=== PATIENT | male | born 1995 | race Caucasian/White ===

== ENCOUNTER 2020-06-09 12:42 | Emergency (ER) | payer BC, SELFPAY ==
--- NOTE | ~2020-06-09 | CT_ITS ---
EXAMINATION: CT facial & cervical spine wo DATE: 06/09/2020 13:22 INDICATION: Head injury. Headache. TECHNIQUE: Computed tomography (CT) of the maxillofacial region and cervical spine was performed with out intravenous contrast. Automated exposure control and iterative reconstruction technique were empl oyed. The dose-length product was 393.40 mGy-cm. COMPARISON: None FINDINGS: MAXILLOFACIAL CT: There is rightward deviation of the nasal septum. There are nondisplaced fractures of the nasal bones . There is mucosal thickening in the paranasal sinuses including complete opacification of right maxi llary sinus, which is small. The mastoid air cells are normal. CERVICAL SPINE CT: There is 4 degrees levocurvature of cervical spine. Vertebral body heights are normal. Intervertebral disc heights are normal. The following disc levels are specifically discussed: C2-C3: There is no uncovertebral joint osteoarthritis. There is mild bilateral facet joint osteoarthr itis. There is no neural foraminal stenosis. There is no central canal stenosis. C3-C4: There is mild right uncovertebral joint osteoarthritis. There is mild right facet joint osteoa rthritis. There is mild right neural foraminal stenosis. There is no central canal stenosis. C4-C5: There is mild bilateral uncovertebral joint osteoarthritis. There is no facet joint osteoarthr itis. There is no neural foraminal stenosis. There is mild central canal stenosis. C5-C6: There is mild right and moderate left uncovertebral joint osteoarthritis. There is mild right facet joint osteoarthritis. There is mild bilateral neural foraminal stenosis. There is mild central canal stenosis. C6-C7: There is mild right uncovertebral joint osteoarthritis. There is no facet joint osteoarthritis . There is no neural foraminal stenosis. There is no central canal stenosis. C7-T1: There is no uncovertebral joint osteoarthritis. There is mild bilateral facet joint osteoarthr itis. There is no neural foraminal stenosis. There is no central canal stenosis. IMPRESSION: 1. Nondisplaced fractures of the nasal bones. 2. Mild cervical spondylosis. Reviewed, dictated and finalized at location B. [employer]
--- NOTE | ~2020-06-09 | CT_ITS ---
EXAMINATION: CT brain wo con DATE: 06/09/2020 13:22 INDICATION: Headache. TECHNIQUE: Computed tomography (CT) of the head was performed without intravenous contrast. The mA wa s adjusted according to patient size. Iterative reconstruction technique was employed. The dose-lengt h product was 605.33 mGy-cm. COMPARISON: None FINDINGS: There is no intracranial hemorrhage, acute infarction, or abnormal intracranial mass lesion . Cavum septum pellucidum is noted. The ventricles are normal in size. The orbits are normal. There i s mucosal thickening in the paranasal sinuses. The mastoid air cells are normal. IMPRESSION: 1. Normal brain. Reviewed, dictated and finalized at location B. D REPRESENTATIVE IMPRESSION: 1. Normal brain.
[2020-06-09 12:46] VITALS: BP 140/82; PULSE 116; RESP 14; TEMP 36.6; O2SAT 99
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
== END 2020-06-09 14:25 | disposition home or self-care (01) ==
PROVIDERS: Emergency Provider Emergency Medicine
DX: S02.2XXA Fracture of nasal bones, initial encounter for closed fracture (principal); S16.1XXA Strain of muscle, fascia and tendon at neck level, initial encounter; M47.812 Spondylosis without myelopathy or radiculopathy, cervical region; S09.90XA Unspecified injury of head, initial encounter; Y04.2XXA Assault by strike against or bumped into by another person, initial encounter
CPT/HCPCS: 70450; 70486; 72125; 99284

== ENCOUNTER 2022-03-01 20:09 | Emergency (ER) | payer BC, SELFPAY ==
[2022-03-01] VITALS (12 sets, daily range): BP systolic 126–138; BP diastolic 74–86; PULSE 58–81; RESP 13–22; TEMP 36.7; O2SAT 97–100
--- NOTE | 2022-03-01 20:52 | ED.EYEPROB ---
HPI - Eye Problem General Chief complaint: Eye Problems <PRINCESS Sanchez Last Filed: 03/02/22 01:17> Stated complaint: eye injury, pliers to right eye, lose of vision <PRINCESS Sanchez Last Filed: 03/02/22 01:17> Time Seen by Provider: 03/01/22 20:40 <PRINCESS Sanchez Last Filed: 03/02/22 01:17> History of Present Illness HPI Narrative: Patient is a 26-year-old male here for evaluation of right eye pain and decreased vision after blunt penetrating trauma. Patient was at work when he had a pair of pliers accidentally go directly into his right eye. He pulled the pliers out, but since then has been reporting severe pain, drainage and almost complete loss of vision in the right eye. He is unsure of his last tetanus shot. <PRINCESS Sanchez Last Filed: 03/02/22 01:17> Related Data Home medications: Home Medications Medication Instructions Recorded Confirmed No Home Medications 06/09/20 06/09/20 <PRINCESS Sanchez Last Filed: 03/02/22 01:17> Allergies/adverse reactions: Allergies Allergy/AdvReac Type Severity Reaction Status Date / Time No Known Allergies Allergy Unverified 06/09/20 13:41 <PRINCESS Sanchez Last Filed: 03/02/22 01:17> Review of Systems Review of Systems: Gen: Denies fevers or chills Eyes: Reports right-sided eye pain. ENT: Denies congestion Respiratory: Denies shortness of breath or cough CV: Denies chest pain or palpitations GI: Denies abdominal pain nausea, emesis or diarrhea denies burning, urgency, frequency or hematuria Musculoskeletal: Denies back pain or muscle pain Neuro: Denies numbness, tingling, weakness or focal weakness Skin: Denies rash Except as documented, all other systems reviewed and negative <PRINCESS Sanchez Last Filed: 03/02/22 01:17> [facility] Social History Social History: Social History (Updated 06/09/20 @ 14:17 by Julius Barraza, PRINCESS) Smoking status: Never smoker <Christen Rose PA-C - Last Filed: 03/02/22 01:17> Exam Narrative: Gen: Alert, oriented, no acute distress Eyes: Right eye has vitreous humor protruding, pupil and iris grossly deformed, unable to see out of right eye Pulm: Respirations even and unlabored, symmetric thorax expansion, no audible stridor or visible cyanosis CV: Regular rate per telemetry GI: No distension, no voluntary/involuntary guarding Neuro: AOx4, moves all extremities without apparent difficulty or weakness, follows commands Skin: No jaundice, no visible bruising, rashes, lesions or wounds on exposed skin Psych: Normal mood/affect, insight/judgement good, adequate fund of knowledge, recent/remote memory intact <Christen Rose PA-C - Last Filed: 03/02/22 01:17> Course YACHT HAND/PA Physician Supervision I dexamined and discussed this patient with CHRISTIE Rose. I agree with the exam, assessment and plan as documented. <Cisco Bazzi MD - Last Filed: 03/03/22 12:38> Consultations Consultation #1: Spoke with Dr. Tan, optho, agrees with plan for transfer <Christen Rose PA-C - Last Filed: 03/02/22 01:17> Date: 03/01/22 <Christen Rose PA-C - Last Filed: 03/02/22 01:17> Time: 21:05 <Christen Rose PA-C - Last Filed: 03/02/22 01:17> Vital Signs Vital signs: Vital Signs Temperature 98.1 F 03/01/22 20:13 Pulse Rate 68 03/01/22 20:13 Respiratory Rate 16 03/01/22 20:13 Blood Pressure 136/74 03/01/22 20:13 Pulse Oximetry 100 03/01/22 20:13 Oxygen Delivery Room Air 03/01/22 20:13 Temperature 98.1 F 03/01/22 20:13 Pulse Rate 66 03/01/22 22:30 Respiratory Rate 13 03/01/22 22:30 Blood Pressure 138/86 03/01/22 22:30 Pulse Oximetry 99 03/01/22 22:30 Oxygen Delivery Room Air 03/01/22 20:13 <Christen Rose PA-C - Last Filed: 03/02/22 01:17> Vital Signs Temperature 98.1 F
[2022-03-01] MEDS: ONDANSETRON INJ 4 MG/2 ML VIAL IV PUSH (21:23)
[2022-03-01] MEDS: MORPHINE SULFATE (*CRX) 4 MG/ML INJ IV PUSH (21:23)
[2022-03-01] MEDS: TETANUS,DIPHTHERIA,AC PERTUSSIS ADULT (0.5 ML) BOOSTRIX IM (21:31)
[2022-03-01] MEDS: CIPROFLOXACIN 400 MG/D5W 200ML 200 ML 200 MG IVPB (22:22)
== END 2022-03-01 22:45 | disposition short-term general hospital (02) ==
LOC: ANHED 21:07
PROVIDERS: Emergency Provider Preventive Medicine Aerospace Medicine
DX: S05.31XA Ocular laceration without prolapse or loss of intraocular tissue, right eye, initial encounter (principal); W27.0XXA Contact with workbench tool, initial encounter; Z23 Encounter for immunization
CPT/HCPCS: 90471; 90715; 96365; 96367; 96375; 99285; J0690; J0744; J2270; J2405

== ENCOUNTER 2024-06-27 10:28 | Inpatient (IN) | payer OTHER, SELFPAY ==
--- NOTE | ~2024-06-27 | CT_ITS ---
EXAMINATION: CT orbit BI w con DATE: 06/27/2024 16:10 INDICATION: Periorbital cellulitis. TECHNIQUE: Computed tomography (CT) of the orbits was performed with 75 mL Omnipaque 350 intravenous contrast. Automated exposure control and iterative reconstruction technique were employed. The dose-l ength product was 197.78 mGy-cm. COMPARISON: Maxillofacial CT 06/09/2020 FINDINGS: The extraocular muscles and optic nerves are normal. There are likely changes of right ocul ar lens replacement surgery. There is left cheek soft tissue swelling with 7 mm subcutaneous abscess. There is rightward deviation of the nasal septum. There is complete opacification of right maxillary sinus, which is small. There is mild mucosal thickening in the ethmoid sinuses. IMPRESSION: 1. Left cheek soft tissue swelling with 7 mm subcutaneous abscess. Reviewed, dictated and finalized at location A. ESSIONAL DEVELOPMENT DIRECTOR
[2024-06-27 10:59] VITALS: BP 110/68; PULSE 86; RESP 16; TEMP 36.6; O2SAT 100
--- NOTE | 2024-06-27 12:55 | ECG_ITS ---
Test Date: 2024-06-27 15:49:32 Measurements Intervals [place] Rate: 50 P: 68 UT: 188 QRS: 74 QRSD: 94 T: 69 QT: 420 QTc: 386 Interpretive Statements SINUS BRADYCARDIA WITH MARKED SINUS ARRHYTHMIA MINIMAL Q WAVES- ANTEROLAT/INF LEADS ST ELEVATION IN ANT/INF LEADS- PROBABLY EARLY REPOLARIZATION BORDERLINE ECG No previous ECG available for comparison Electronically Signed On 06-27-2024 16:17:25 [employer] by Marcello Bryant D.O.
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
[2024-06-27 15:18] LABS: Basophils Percent Auto 0.4 % (0.2-1.2); Eosinophils Absolute Auto 0.3 K/mm3 (0-0.3); Eosinophils Percent Auto 4.4 % (0-4.4); Hematocrit 41.6 % (42.0-52.0); Hemoglobin 14.1 g/dL (14.0-18.0); Immature Granulocyte Absolute 0.02 K/mm3 (0.00-0.031); Immature Granulocyte Percent A 0.3 % (0-0.5); Lymphocytes Absolute Auto 2.12 K/mm3 (0.9-3.2); Mean Corpuscular HGB Conc 33.9 g/dl (32-36); Mean Corpuscular Volume 94.3 fl (80-100); Mean Platelet Volume 9.9 fl (7.4-10.4); Monocytes Absolute Auto 0.6 K/mm3 (0.1-0.6); Monocytes Percent Auto 7.9 % (2.6-8.5); Neutrophils Absolute Auto 4.5 K/mm3 (1.3-6.7); Platelet Count Result 220 k/mm3 (150-375); Red Blood Count 4.41 M/mm3 (4.6-6.20); Red Cell Distribution Width 12.3 % (11.5-14.5); White Blood Count 7.6 K/mm3 (4.5-10.0)
[2024-06-27 15:30] LABS: Lactic Acid Reflex 1.2 mmol/L (0.7-2.0)
[2024-06-27 15:32] LABS: Alanine Aminotransferase 33 U/L (6-50); Albumin Level 4.2 g/dL (3.5-5.1); Alkaline Phosphatase 55 U/L (38-126); Anion Gap 10 mmol/L (4-12); Aspartate Amino Transferase 52 U/L (17-59); Bilirubin,Total 0.6 mg/dL (0.2-1.3); Blood Urea Nitrogen 13 mg/dL (9-20); Calcium 9.1 mg/dL (8.4-10.2); Carbon Dioxide 27 mmol/L (22-30); Chloride 103 mmol/L (98-107); Estimated CRCL calculation 119 ml/min; Estimated Glomerular Filt Rate > 60; Glucose 134 mg/dL (65-110); Sodium 140 mmol/L (137-145)
[2024-06-27 15:34] LABS: Prothrombin Time 13.1 Seconds (11.1-14.7)
[2024-06-27 15:35] LABS: Partial Thromboplastin Time 25.3 Seconds (22.3-36.8)
[2024-06-27 15:52] LABS: CRP 3.1 mg/dL (<1.0)
--- OUTSIDE RECORDS SUMMARY | 2024-06-27 16:09 | XMS_ITS | Patient Health Summary ---
Author Organization [facility] [employer] Address [address] [place] [address] Care Team Providers Care Story Teller Name Role Phone Mahin Will MD Primary Care Provider [phone] Note from [facility],non-owned Affiliates and Associated Physician Practices is amultiple site organization consisting of ambulatory clinics and hospital sitesin [place], [place], [place] and [place]. This disclosure is being madepursuant to the Care Everywhere program and may not contain all information available regarding this patient. Last updated 18.[facility] [employer] Allergies No known active allergies Medications * Be aware that medications may not be up to date on this document. Alwaysverify current medications with the patient. * loxapine (LOXITANE) 50 MG capsule(Started 07/02/2014) Take 1 Cap by mouth once daily after dinner. Indications: Psychosis 1 refill left Active Problems Problem Noted Date Diagnosed Date Ruptured globe of right eye 03/02/2022 Marijuana abuse 06/28/2014 Schizoaffective disorder 06/28/2014 Patient nonadherence 06/28/2014 Social History Tobacco Use Types Packs/Day Years Used Date Smoking Tobacco: Some Days Cigarettes Smokeless Tobacco: Never Tobacco Cessation:Ready to Q uit: Not Asked; Counseling Given: Not Answered Alcohol Use Standard Drinks/Week Comments Not Currently 0 (1 standard drink = 0.6 oz pur e alcohol) socially AUDIT-C Answer Date Recorded Q1: How often do you have a drink containing alc ohol? 2-3 times a week 10/11/2022 Q2: How many drinks containi ng alcohol do you have on a typical day when you are drinking? 1 or 2 10/11/2022 Q3: How often do you have si x or more drinks on one occasion? Never 10/11/2022 Sex and Gender Information Value Date Recorded Sex Assigned at Not on file Gender Identity Not on file Sexual Orientation Not on file Last Filed Vital Signs Vital Sign Reading Time Taken Comments Blood Pressure 112/64 10/11/2022 10:10 AM CDT Pulse 82 10/11/2022 10:10 AM CDT Temperature 36.7 C (98.1 F) 10/11/2022 9:45 AM CDT Respiratory Rate 17 10/11/2022 10:00 AM CDT Oxygen Saturation 97% 10/11/2022 10:10 AM CDT Inhaled Oxygen Concentration 21% 10/11/2022 6 :40 AM CDT Weight 81.6 kg (180 lb) 10/11/2022 6:40 AM CDT Height 182.9 cm (6') 10/11/2022 6:40 AM CDT Body Mass Index 24.41 10/11/2022 6:40 AM CDT Medical Devices Implanted Type Area Hog Cooler Device Identifier Shelf Expiration Date Model / Serial / Lot Lens Iol 10 D +19.5 Nancy Mod C Bcnvx - [id number] Implanted:Qty: 1 on 10/11/2022 by Kiel Lofton MD at [facility] Right: Eye [employer] 09/21/2026 MA60AC.[id number] / [id number] Procedures * EXTRACTION CATARACT WITH INSERTION LENS(Performed 10/11/2022) Performed for Ruptured globe with uveal prolapse, right, subsequent encounter * LARYNGEAL MASK AIRWAY(Performed 10/11/2022) * OPH IOL TEST [facility]U(Performed 05/28/2022) Performed for S/P eye surgery * OPH EYE ULTRASOUND [facility](Performed 03/26/2022) Performed for S/P eye surgery * REPAIR OPEN/RUPTURED GLOBE(Performed 03/02/2022) Performed for Ruptured globe, right eye, subsequent encounter * LARYNGEAL MASK AIRWAY(Performed 03/02/2022) * BLOOD TYPE VERIFICATION(Performed 03/02/2022) * PTT [facility](Performed 03/02/2022) * PT-INR [facility](Performed 03/02/2022) * TYPE + SCREEN PANEL(Performed 03/02/2022) * COMPREHENSIVE METABOLIC PANEL(Performed 03/02/2022) * CBC W AUTO DIFFERENTIAL(Performed 03/02/2022) * CULTURE AEROBIC(Performed 06/06/2019) Performed for Cutaneous abscess of trunk, unspecified site of trunk * STREP A SCREEN - POINT OF CARE (AMB) STL(Performed 03/27/2019) Performed for Acute nasopharyngitis * INFLUENZA A+B - POINT OF CARE (AMB)(Performed 03/27/2019) Performed for Acute nasopharyngitis * STREP A SCREEN - POINT OF CARE (AMB) STL(Performed 05/18/2018) Performed for Acute sinusitis, recurrence not specified, unspecified location * INFLUENZA A+B - POINT OF CARE (AMB)(Performed 05/18/2018) Performed for Acute bronchitis, unspecified organism * URINE DRUG SCREEN IMMUNOASSAY(Performed 06/30/2014) * URINALYSIS REFLEX TO MICROSCOPIC NO CULTURE(Performed 06/30/2014) * TSH(Performed 06/28/2014) * COMPREHENSIVE METABOLIC PANEL(Performed 06/28/2014) * CBC W AUTO DIFFERENTIAL(Performed 06/28/2014) * URINE DRUG SCREEN IMMUNOASSAY(Performed 06/27/2014) * ALCOHOL ETHYL BLOOD(Performed 06/27/2014) * COMPREHENSIVE METABOLIC PANEL(Performed 06/27/2014) * CBC W AUTO DIFFERENTIAL(Performed 06/27/2014) Results * LARYNGEAL MASK AIRWAY (10/11/2022 7:39 AM CDT) Narrative Demetria Cardenas Anes Asst - 10/11/2022 7:39 AM CDT Demetria Cardenas Anes Asst 10/11/2022 7:40 AM LMA Placement Procedure/LDA Note: Patient Location: OR. LMA Insertion Date/Time: 10/11/2022 7:34 AM Procedure: LMA. Pretreatment: 100% O2 Induction: standard IV Patient position: supine. Mask Ventilation: not attempted Type: LMA Size: 5 Number of Attempts: 1. Placement verified by: CO2 monitor Dentition unchanged? Yes Procedure Start Time: 10/11/2022 7:34 AM. Staff Section Anesthesia Provider: Demetria Cardenas Anes Asst, Performed the procedure Provider #1: Melvin Hylton MD. Additional Comments: Atraumatic LMA insertion with lips, teeth, and tongue in pre-op condition. . Melvin Hylton MD GENERAL ANESTHESIA O RDERABLES * IOL Master ([employer]star) (05/28/2022 11:22 AM PLASTIC PRINTER) Anatomical Region Laterality Modality Other 05/28/2022 11:2 2 AM PLASTIC PRINTER Kiel Lofton MD OPHTHALMOLOGY SERVIC ES ORDERABLES * OPH EYE ULTRASOUND [facility] (03/26/2022 12:00 AM CDT) Anatomical Region Laterality Modality Other 03/26/2022 Kiel Lofton MD OPHTHALMOLOGY SERVIC ES ORDERABLES * LARYNGEAL MASK AIRWAY (03/02/2022 10:19 AM CDT) Narrative Zara Eaton APRN-CRNA - 03/02/2022 10:19 AM CDT Zara Eaton APRN-CRNA 03/02/2022 10:20 AM LMA Placement Procedure/LDA Note: LMA Insertion Date/Time: 03/02/2022 10:10 AM Procedure: LMA. Pretreatment: 100% O2 Mask Ventilation: not attempted Type: LMA Size: 5 Number of Attempts: 1. Placement verified by: direct visualization, bilateral breath sounds, chest auscultation and CO2 monitor Procedure Start Time: 03/02/2022 10:10 AM. Staff Section Anesthesia Provider: Zara Eaton APRN-CRNA, Performed the procedure Provider #1: Melvin Hylton MD. Melvin Hylton MD GENERAL ANESTHESIA O RDERABLES * BLOOD TYPE VERIFICATION (03/02/2022 2:16 AM CDT) ABO Rh A POS 03/02/2022 2:4 5 AM CDT [facility] Blood Bank BLOOD SPECIMEN / Unknown Lab Venipuncture / Unknown 03/02/2022 2:16 AM CDT 03/02/2022 2:22 AM CDT Kimberlyn Giles MD LAB - BLOOD BANK ORD ERABLES [facility] [address] [place] [address], [facility] [phone] * (ABNORMAL) PTT [facility] (03/02/2022 2:15 AM CDT) APTT 22.6(L) 23.0 - 38.4 Seconds 03/02/2022 2:46 AM CDT [facility] Comment:Suggested therapeuti c range for full dose I.V. unfractionated heparin therapy for venous thromboembolism is 71 to 109 seconds. Blood BLOOD SPECIMEN / Unknown Venipuncture / Unknown 03/02/2022 2:15 AM CDT 03/02/2022 2:21 AM CDT Yuval Glover MD LAB - COAGULATION OR DERABLES Performing Organization Address [facility]/ZIP Co de Phone Number [address] [address], [facility] [phone] * PT-INR [facility] (03/02/2022 2:15 AM CDT) Pathologist [facility] PT 13.6 12.1 - 14.8 Seconds 03/02/2022 2:46 AM CDT [facility] INR 1.1 See Comment 03/02/2022 2:46 AM CDT [facility] Comment:The suggested therap eutic range for standard coumadin (warfarin) therapy is an INR of 2.0-3.0. For high-risk patients (Mechanical Mitral Valve Prosthesis, etc.), the suggested prophylactic therapeutic range is an INR of 2.5-3.5. Blood BLOOD SPECIMEN / Unknown Venipuncture / Unknown 03/02/2022 2:15 AM CDT 03/02/2022 2:21 AM CDT Yuval Glover MD LAB - COAGULATION OR DERABLES [address] [address], [facility] [phone] * TYPE + SCREEN PANEL (03/02/2022 1:54 AM CDT) Pathologist [facility] Antibody Screen NEG 2:46 AM CDT [facility] ABO Rh A POS 03/02/2022 2:46 AM CDT [facility] Blood Bank BLOOD SPECIMEN / Unknown Venipuncture / Unknown 03/02/2022 1:54 AM CDT 03/02/2022 2:02 AM CDT Yuval Glover MD LAB - BLOOD BANK ORD ERABLES [facility] [address] [place] [address], [facility] [phone] * (ABNORMAL) CBC W AUTO DIFFERENTIAL (03/02/2022 1:54 AM CDT) Only the most recent of3 resultswithin the time period is included. WBC 9.3 3.5 - 10.5 10 3/uL 03/02/2022 2:31 AM [facility] RBC 4.59 4.30 - 5.70 10 6/uL 03/02/2022 2:31 AM [facility] Hemoglobin 14.2 12.0 - 17.6 g/dL 03/02/2022 2:31 AM [facility] Hematocrit 41.2 35.2 - 51.7 % 03/02/2022 2:31 AM [facility] MCV 89.8 80.7 - 98.3 fL 03/02/2022 2:31 AM [facility] MCH 30.9 26.7 - 34.0 pg 03/02/2022 2:31 AM [facility] MCHC 34.5 30.8 - 35.9 g/dL 03/02/2022 2:31 AM [facility] Platelet Count 227 150 - 400 10 3/uL 03/02/2022 2:31 AM [facility] Comment: Checked by peripheral smear. This is an appended report. These results have been appended to a previously preliminary verified report. RDW-SD 38.9 36.0 - 50.0 fL 03/02/2022 2:31 AM [facility] RDW-CV 11.9 11.2 - 14.8 % 03/02/2022 2:31 AM [facility] MPV 03/02/2022 2:31 AM [facility] Comment:Unable to Report Immature Platelet Fraction 03/02/2022 2:31 AM [facility] Comment:Unable to Report nRBC Absolute 0.00 0 10 3/uL 03/02/2022 2:31 AM [facility] nRBC Auto 0.0 0 /100 WBC 03/02/2022 2:31 AM [facility] Neutrophils % 75.4(H) 35.0 - 70.0 % 03/02/2022 2:31 AM [facility] Lymphocytes % 17.7(L) 20.0 - 43.0 % 03/02/2022 2:31 AM [facility] Monocytes % 5.8 5.0 - 13.0 % 03/02/2022 2:31 AM [facility] Eosinophils % 0.4 0.0 - 6.0 % 03/02/2022 2:31 AM [facility] Basophil % 0.3 0.0 - 2.0 % 03/02/2022 2:31 AM [facility] Neutrophils Absolute 6.98 1.60 - 7.00 10 3/uL 03/02/2022 2:31 AM [facility] Lymphocyte Absolute 1.64 1.10 - 3.90 10 3/uL 03/02/2022 2:31 AM [facility] Monocytes Absolute 0.54 0.26 - 1.07 10 3/uL 03/02/2022 2:31 AM [facility] Eosinophils Absolute 0.04 0.00 - 0.47 10 3/uL 03/02/2022 2:31 AM [facility] Basophils Absolute 0.03 0.00 - 0.08 10 3/uL 03/02/2022 2:31 AM [facility] Immature Granulocytes % 0.4 0.0 - 1.0 % 03/02/2022 2:31 AM [facility] Immature Granulocytes Absolute 0.04 03/02/2022 2:31 AM [facility] Blood BLOOD SPECIMEN / Unknown Venipuncture / Unknown 03/02/2022 1:54 AM CDT 03/02/2022 2:00 AM CDT Yuval Glover MD LAB - HEMATOLOGY ORD ERABLES [facility] [address] [place] [address], [facility] [phone] * (ABNORMAL) COMPREHENSIVE METABOLIC PANEL (03/02/2022 1:54 AM CDT) Only the most recent of3 resultswithin the time period is included. BUN 10 7 - 26 mg/dL 03/02/2022 2:31 AM [facility] Creatinine 0.88 0.71 - 1.16 mg/dL 03/02/2022 2:31 AM [facility] Sodium 139 136 - 145 mmol/L 03/02/2022 2:31 AM [facility] Potassium 4.5 3.5 - 4.5 mmol/L 03/02/2022 2:31 AM [facility] Comment:Hemolysis detected i n this specimen. Hemolysis may cause false elevations in potassium leading to pseudohyperkalemia or masked hypokalemia. Recommend repeat testing if clinically indicated. Chloride 106 98 - 107 mmol/L 03/02/2022 2:31 AM [facility] CO2 22 22 - 29 mmol/L 03/02/2022 2:31 AM [facility] Glucose 97 70 - 115 mg/dL 03/02/2022 2:31 AM [facility] Calcium 8.0(L) 8.4 - 10.2 mg/dL 03/02/2022 2:31 AM [facility] Protein Total 6.4 6.0 - 8.3 g/dL 03/02/2022 2:31 AM [facility] Comment:Hemolysis detected i n this specimen. Hemolysis is known to cause elevations in this analyte. Caution should be exercised in the interpretation of this result. Recommend repeat testing if clinically indicated. Albumin 3.7 3.4 - 5.0 g/dL 03/02/2022 2:31 AM [facility] Bilirubin Total 0.4 0.2 - 1.2 mg/dL 03/02/2022 2:31 AM [facility] Alkaline Phosphatase 49 40 - 150 U/L 03/02/2022 2:31 AM [facility] ALT 19 5 - 55 U/L 03/02/2022 2:31 AM [facility] AST 25 5 - 34 U/L 03/02/2022 2:31 AM [facility] Comment:Hemolysis detected i n this specimen. Hemolysis is known to cause elevations in this analyte. Caution should be exercised in the interpretation of this result. Recommend repeat testing if clinically indicated. Anion Gap 16 8 - 18 03/02/2022 2:31 AM [facility] BUN/Creatinine Ratio 11 7 - 23 02/20 2:31 AM [facility] Osmolality Calculated 287 270 - 300 mOsm/kg 03/02/2022 2:31 AM [facility] Albumin/Globulin Ratio 1.4 1.1 - 2.3 2:31 AM [facility] eGFR by CKD-EPI >90 >=90 mL/min/1. 73 m2 03/02/2022 2:31 AM [facility] Blood BLOOD SPECIMEN / Unknown Venipuncture / Unknown 03/02/2022 1:54 AM CDT 03/02/2022 2:00 AM CDT Yuval Glover MD LAB - CHEMISTRY BHUPINDER SHE[place]TON [facility] [address] [place] [address], [facility] [phone] * CULTURE AEROBIC (06/06/2019 4:10 PM PLASTIC PRINTER) Aerobic Bacterial Culture Final report [facility] ACCOUNT BILL Result 1 [facility] ACCOUNT BILL Comment:No growth in 36 - 48 hours. Microbiology CHEST AND ABDOMEN / Unknown 06/06/2019 4:10 PM PLASTIC PRINTER 06/06/2019 Narrative Resulting Agency Comment Lab Testing performed at: [facility] [address] [id number] Grace Bee LABORER [employer] LAB - MICROBIOLOG Y ORDERABLES [facility] ACCOUNT BILL [address] [place] [address] * STREP A SCREEN (03/27/2019 9:39 AM PLASTIC PRINTER) Only the most recent of2 resultswithin the time period is included. Strep A Rapid POCT Negative Negative Strep A Internal Control Present Lot # [id number] Expiration Date 0052019 Throat ENTIRE THROAT (SURFACE REGION OF NECK) / Unknown 03/27/2019 9:39 AM PLASTIC PRINTER [facility] Rohit [facility] RE ORDERABLES * INFLUENZA A+B - POINT OF CARE (AMB) (03/27/2019 9:39 AM PLASTIC PRINTER) Only the most recent of2 resultswithin the time period is included. Pathologist [facility] Influenza A Antigen Rapid Negative Negative Influenza B Antigen Rapid Negative Negative Influenza Internal Control positive NEGATIVE - POSITIVE Influenza Lot Number [id number] Influenza Expiration Date Other NASOPHARYNGEAL SWAB / Unknown 03/27/2019 9:39 AM PLASTIC PRINTER Grace Bee [facility] - POINT OF [place] RE ORDERABLES * URINALYSIS ROUTINE AUTO (06/30/2014 8:57 AM PLASTIC PRINTER) Pathologist [facility] Color UA Yellow Straw, Yellow, Dark Yellow 06/30/2014 11:35 AM [facility] Clarity UA Clear 06/30/2014 11:35 AM [facility] Specific [place] UA 1.026 1.005 - 1.030 06/30/2014 11:35 AM [facility] pH UA 6.0 5.0 - 8.0 pH 06/30/2014 11:35 AM [facility] Protein UA Negative Negative 06/30/2014 11:35 AM [facility] Blood UA Negative Negative 06/30/2014 11:35 AM [facility] Leukocyte UA Negative Negative 06/30/2014 11:35 AM [facility] Nitrite UA Negative Negative 06/30/2014 11:35 AM [facility] Glucose UA Negative Negative 06/30/2014 11:35 AM [facility] Ketone UA Negative Negative 06/30/2014 11:35 AM [facility] Bilirubin UA Negative Negative 06/30/2014 11:35 AM [facility] Urobilinogen UA 0.2 0.1 - 1.0 EU/dL 06/30/2014 11:35 AM [facility] Urine URINE SPECIMEN OBTAINED BY CLEAN CATCH PROCEDURE / Unknown 06/30/2014 8:57 AM PLASTIC PRINTER 06/30/2014 11:27 AM [facility] Raúl Forbes MD LAB - URINALYSIS ORD ERABLES [facility] [address] [place] [address] * (ABNORMAL) DRUG SCREEN TOX URINE PANEL (06/30/2014 8:57 AM [facility]) Only the most recent of2 resultswithin the time period is included. Amphetamines Screen Urine Not Detected Not Detected 06/30/2014 11:41 AM [facility] Barbiturates Screen Urine Not Detected Not Detected 06/30/2014 11:41 AM [facility] Benzodiazepines Screen Urine Not Detected Not Detected 06/30/2014 11:41 AM [facility] Cannabinoids Screen Urine Detected(A) Not Detected 06/30/2014 11:41 AM [facility] Cocaine Screen Urine Not Detected Not Detected 06/30/2014 11:41 AM [facility] Methadone Screen Urine Not Detected Not Detected 06/30/2014 11:41 AM [facility] Opiate Screen Urine Not Detected Not Detected 06/30/2014 11:41 AM [facility] Phencyclidine Screen Urine Not Detected Not Detected 06/30/2014 11:41 AM [facility] Urine URINE / Unknown 06/30/2014 8 :57 AM PLASTIC PRINTER 06/30/2014 11:27 AM [facility] Narrative [facility] - 06/30/2014 11:41 AM [facility] This drug screen is designed for MEDICAL purposes only. It is not to be used for legal purposes, including but not limited to worker's comp, police investigations, occupational issues, child custody, etc. Any positive result is only presumptive and must be confirmed with a separate confirmatory test ordered by the physician. Drug Screening Test Cutoff Values: AMPHETAMINES 1000 ng/ml BARBITURATES 200 ng/ml BENZODIAZEPINES 200 ng/ml CANNABINOIDS(THC) 50 ng/ml COCAINE 300 ng/ml METHADONE 300 ng/ml OPIATES 300 ng/ml PHENCYCLIDINE(PCP)25 ng/ml Raúl Forbes MD LAB - URINE CHEMISTR Y ORDERABLES Performing Organization Address [facility] Co de Phone Number [facility] [address] [place] [address] * (ABNORMAL) TSH (06/28/2014 6:35 AM PLASTIC PRINTER) TSH 3.87(H) 0.358 - 3.740 uIU/mL 06/28/2014 12:27 PM PLASTIC PRINTER [facility] Blood BLOOD SPECIMEN / Unknown Lab Venipuncture / Unknown 06/28/2014 6:35 AM PLASTIC PRINTER 06/28/2014 7:03 AM PLASTIC PRINTER Raúl Forbes MD LAB - CHEMISTRY ORDE RABMAYNOR Performing Organization Address [facility] Co de Phone Number [facility] [address] [place] [address] * ALCOHOL ETHYL BLOOD (06/27/2014 2:13 PM PLASTIC PRINTER) Ethanol <3 <10 mg/dL 06/27/2014 2:44 PM PLASTIC PRINTER [facility] Ethanol Calculated <0.100 gm/dL 06/27/2014 2:44 PM PLASTIC PRINTER [facility] Comment:Not Calculated Blood BLOOD SPECIMEN / Unknown 06/27/2014 2:13 PM PLASTIC PRINTER 06/27/2014 2:20 PM PLASTIC PRINTER Narrative [facility] - 06/27/2014 2:44 PM PLASTIC PRINTER Non Legal Serum Alcohol Genet Hahn MD LAB - CHEMISTRY ORDXenia SHELTON Performing Organization Address [facility] Co de Phone Number [facility] [address] [place] [address] Care Teams Story Teller Relationship Specialty Start Date End Date Mahin Will MD [address] [place] [address] PCP - General 03/05/22
--- OUTSIDE RECORDS SUMMARY | 2024-06-27 16:09 | XMS_ITS | Referral Summary ---
Author Organization [facility] [employer] Address [address] [place] [address] Care Team Providers Care Diesel Engine I Pipe Fitter Name Role Phone Mahin Will MD Primary Care Provider [phone] Source Comments [facility] [employer],non-owned Affiliates and Associated Physician Practices is amultiple site organization consisting of ambulatory clinics and hospital sitesin [place], [place], [place] and [place]. This disclosure is being madepursuant to the Care Everywhere program and may not contain all information available regarding this patient. Last updated 18.[facility] [employer] Allergies No known active allergies Medications * Be aware that medications may not be up to date on this document. Alwaysverify current medications with the patient. Medication Sig Dispensed Refills Start Date End Date Status loxapine (LOXITANE) 50 MG capsuleIndications:P sychosis Take 1 Cap by mouth once daily after dinner. Indications: Psychosis 30 Cap 1 07/02/2014 Active Additional Information Patient not taking.Reported on 10/11/2022 Active Problems Problem Noted Date Diagnosed Date [...] Mass Index 24.41 10/11/2022 6:40 AM CDT Functional Status Functional Status Response Date of Assess ment Is person deaf or have serious hearing difficult y? No 07/02/2014 Is person blind or have serious difficulty seein g? No 07/02/2014 Does person have serious dif ficulty walking/climbing stairs? No 07/02/2014 Does person have difficulty dressing/bathing? No 07/02/2014 Does person have difficulty doing errands alone? No 07/02/2014 Cognitive Status Response Date of Assessm ent Does person have difficulty concentrating/remembering/making decisions? No 07/02/2014 Plan of Treatment Not on file Medical Devices Implanted Type Area Flight Mechanic Device Identifier Shelf Expiration Date Model / Serial / Lot Lens Iol 10 D +19.5 Nancy Mod C Bcnvx - [id number] Implanted:Qty: 1 on 10/11/2022 by Kiel Lofton MD at [facility] Right: [employer] 09/21/2026 MA60AC.195 / [id number] / [id number] Advance Directives * Full Code (Latest Code Status on File) Date Activated Date Inactivated Comments 03/02/2022 4:51 AM 03/02/2022 9:16 AM * Full Code Date Activated Date Inactivated Comments 06/27/2014 10:42 PM 07/02/2014 5:53 PM Care Teams Diesel Engine I Pipe Fitter Relationship Specialty Start Date End Date Mahin Will MD [address] [place] [address] PCP - General 03/05/22
--- OUTSIDE RECORDS SUMMARY | 2024-06-27 16:10 | XMS_ITS | Clinical Summary ---
Author Organization [facility] Address [address] [place] [address] Care Team Providers Care Oliving Machine Operator Name Role Phone Mahin Will MD Primary Care Provider [phone] Source Comments [facility],non-owned Affiliates and Associated Physician Practices is amultiple site organization consisting of ambulatory clinics and hospital sitesin [place], [place], [place] and [place]. This disclosure is being madepursuant to the Care Everywhere program and may not contain all information available regarding this patient. Last updated 18.[facility] Allergies No known active allergies Medications * [...] 06/28/2014 Schizoaffective disorder 06/28/2014 Patient nonadherence 06/28/2014 Family History Medical History Relation Name Comments None Known Father None Known Mother Relation Name Status Comments Father Mother Social History Tobacco Use Types Packs/Day Years [...] Mass Index 24.41 10/11/2022 6:40 AM CDT Plan of Treatment Health Maintenance Due Date Last Done Comments HIV SCREENING 2009 HEPATITIS C SCREENING 04/23/2012 DTAP/TDAP/TD VACCINES (1 - Tdap) 2013 HEPATITIS B VACCINE (1 of 3 - 19+ 3-dose series) 2013 PNEUMOCOCCAL VACCINE (1 of 2 - PCV) 2013 COVID-19 VACCINE (3 - 2023-2 5 season) 2024 08/12/2020, 07/20/2020 INFLUENZA VACCINE (#1) 2024 DEPRESSION SCREENING 05/23/2024 ZOSTER VACCINE (1 of 2) 2044 HIB VACCINE Aged Out No longer eligi ble based on patient's age to complete this topic HPV VACCINE Aged Out No longer eligi ble based on patient's age to complete this topic MENINGOCOCCAL (Group B) VACCINE Aged Out No longer eligible b ased on patient's age to complete this topic MENINGOCOCCAL VACCINE Aged Out No aaron benjamin eligible based on patient's age to complete this topic Medical Devices Implanted Type Area Edging Machine Catcher Device Identifier Shelf Expiration Date Model / Serial / Lot Lens Iol 10 D +19.5 Nancy Mod C Bcnvx - [id number] Implanted:Qty: 1 on 10/11/2022 by Kiel Lofton MD at [facility] Right: [employer] 09/21/2026 [id number] / [id number] / [id number] Advance Directives * Full Code (Latest Code Status on File) Date Activated Date Inactivated Comments 03/02/2022 4:51 AM 03/02/2022 9:16 AM * Full Code Date Activated Date Inactivated Comments 06/27/2014 10:42 PM 07/02/2014 5:53 PM Care Teams Oliving Machine Operator Relationship Specialty Start Date End Date Mahin Will MD [address] [place] [address] PCP - General 03/05/22
--- OUTSIDE RECORDS SUMMARY | 2024-06-27 16:10 | XMS_ITS | Encounter Summary ---
Author Organization [facility] Address [address] [place] [address] Care Team Providers Care Textile Engraver Name Role Phone Mahin Will MD Primary Care Provider [phone] Encounter Details Date Type Department Care Team (Late st Contact Info) Description 03/02/2022 Ophth Exam [facility] [address] [place] [id number] Ray Tan MD [address] [place] [id number] Social History Tobacco Use Types Packs/Day Years Used Date Smoking Tobacco: Never Smokeless Tobacco: Never Alcohol Use Standard Drinks/Week Comments Not Currently 0 (1 standard drink = 0.6 oz pur e alcohol) socially AUDIT-C Answer Date Recorded Q1: How often do you have a drink containing alc ohol? 2-4 times a month 03/02/2022 Q2: How many drinks containi ng alcohol do you have on a typical day when you are drinking? 3 or 4 03/02/2022 Q3: How often do you have si x or more drinks on one occasion? Never 03/02/2022 Sex and Gender Information Value Date Recorded Sex Assigned at Not on file Gender Identity Not on file Sexual Orientation Not on file documented as of this encounter Functional Status Functional Status Response Date of [...] person have difficulty concentrating/remembering/making decisions? No 07/02/2014 documented as of this encounter Plan of Treatment Not on file documented as of this encounter Visit Diagnoses Not on filedocumented in this encounter Care Teams Textile Engraver Relationship Specialty Start Date End Date Mahin Will MD [address] [place] [address] PCP - General 03/05/22 documented as of this encounter
--- NOTE | 2024-06-27 17:13 | PM.IMHP ---
H&P: HPI History of Present Illness Date/Time: 06/27/24 16:31 Chief Complaint: Facial Infection Narrative: 29 y/o M presents here with facial swelling and purulent drainage with PMH of MRSA infection. The patient presents here from a local urgent care for further evaluation of a possible staph infection. He reports he has been experiencing ongoing redness, swelling, and pain to his lower left eyelid since 06/24. Area initially started as a pimple on Tuesday, 06/23. This area began draining white purulent drainage on 06/24. He reports he has attempted to expel the pus 3 times and was successful in draining it each time. He initially sought care at a local urgent care who referred him to the ER. He denies any changes in vision, fever, chills, or body aches. 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 Patient does a lot of martial arts and is frequently around staff/at risk. 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 Initial VS at presentation: 97.8? F, HR 86, RR 16, 110/68, and 100% on RA. ED workup showed: No leukocytosis, no anemia, no significant electrolyte derangements, creatinine 0.87 and GFR >60, glucose 134, CRP 3.1, lactic 1.2. Orbit CT showed left cheek soft tissue swelling with 7 mm subcutaneous abscess. EKG showed sinus bradycardia with marked sinus arrhythmia, minimal Q-waves central lateral/inferior leads, ST elevation in inferior/anterior leads probably early repolarization. Review of Systems Review of Systems: All systems reviewed & are unremarkable except as noted in HPI and below PMFSH Past Medical History Medical History MRSA (methicillin resistant Staphylococcus aureus) infection Social History Social History Smoking status: Never smoker Meds Home Medications and Allergies Home Medications ?Medication ?Instructions ?Recorded ?Confirmed ?Type No Home Medications 06/09/20 06/09/20 History Allergies Allergy/AdvReac Type Severity Reaction Status Date / Time No Known Allergies Allergy Unverified 06/09/20 13:41 Vital Signs Vital Signs - 24 hr 06/27/24 10:59 Temperature 97.8 F Pulse Rate 86 Respiratory Rate 16 Blood Pressure 110/68 Pulse Oximetry 100 Exam Const: General: comfortable and no acute distress Other: , male, nontoxic appearance HENMT: Face/Nose/Sinus: Normal nares present Mouth: Yes moist mucous membranes Eyes: General: appearance normal, both eyes and all related structures Sclera: sclerae normal Other: Left pupil PERRLA Resp: Effort & Inspection: normal respiratory effort Auscultation: clear to auscultation bilaterally Cardio: Rate: regular rate Rhythm: regular rhythm Other: S1-S2 present without murmur, rub, ectopy Skin: General skin exam: normal color and no rashes or lesions noted Wounds: wounds noted Other: indurated (2x2 cm) region to left cheek,no active drainage, +erythema. Swelling extends to lower left eyelid. Neuro: Speech: normal speech Motor exam (neuro): 5/5 motor strength present throughout Sensory Exam: normal sensation Other: A&O x4 Extrem: General: normal to inspection Psych: Mental Status: mental status grossly normal Affect: normal affect Other: Good insight judgment, pleasant H&P: Results Labs Labs: Short CBC 06/27/24 Range/Units 15:10 WBC 7.6 (4.5-10.0) K/mm3 Hgb 14.1 (14.0-18.0) g/dL Hct 41.6 L (42.0-52.0) % Plt Count 220 (150-375) k/mm3 BMP 06/27/24 15:10 Sodium 140 Potassium 4.0 Chloride 103 Carbon Dioxide 27 BUN 13 Creatinine 0.87 Glucose 134 H Calcium 9.1 Liver Function 06/27/24 Range/Units 15:10 Total Bilirubin 0.6 (0.2-1.3) mg/dL AST 52 (17-59) U/L ALT 33 (6-50) U/L Alkaline Phosphatase 55 (38-126) U/L Albumin 4.2 (3.5-5.1) g/dL Assessment and Plan Assessment and plan (1) Cellulitis of face: Code(s): L03.211 - Cellulitis of face Status: Acute Assessment and Plan: - did not meet SIRS criteria - CT orbits: 1. Left cheek soft tissue swelling with 7 mm subcutaneous abscess. - started on vancomycin on 06/27 - wound culture - analgesics and antipyretics p.r.n. - monitor WBC Plan Diet: Regular GI Prophylaxis: Not currently indicated DVT Prophylaxis: Low risk Lines: Peripheral Code Status: Full code Quality If No VTE Prophylaxis Answer both mechanical and pharmacologic: Reason no mechanical VTE proph: low risk/not indicated Reason no pharmacologic proph: low risk/not indicated Hospitalist MIPS Advance Care Plan I have confirmed that the patient's Advanced Care Plan is present, code status is documented, or surrogate decision maker is listed in patient medical record.: Yes Medication Reconciliation I have utilized all available resources to obtain, update and review the patients current medications (includes all prescriptions, OTC, herbals, cannabis, and nutritional supplements).: Yes
[2024-06-27 17:27] VITALS: BP 128/85; PULSE 67; RESP 16; O2SAT 100
[2024-06-27 17:30] VITALS: BP 128/85; PULSE 67; RESP 16; O2SAT 100
--- NOTE | 2024-06-27 17:31 | PC.NURSE ---
rn report to gio
[2024-06-27] MEDS: VANCOMYCIN 1,250 MG/NS 250 ML 1,250 MG/250 ML BAG 166.67 MG IVPB (17:32)
[2024-06-27] MEDS: VANCOMYCIN 1,000 MG/NS 250 ML 1,000 MG/250 ML BAG 250 MG IVPB (19:16)
--- NOTE | 2024-06-27 19:44 | PC.NURSE ---
private room is now clean and ready . Report called up to floor, no new questions.
[2024-06-27 22:02] VITALS: BMI 26.2
[2024-06-27 22:03] VITALS: BP 142/78; PULSE 87; RESP 17; TEMP 36.9; O2SAT 99
--- NOTE | 2024-06-27 22:28 | ADMGEN ---
This patient, Manfred Miranda, was admitted to 3 Med Surg Room 319-01. Patient/family oriented to hospital policies and general routines including ID bracelet, bed and alarms, visiting hours, pain management, procedures, bathroom and other care routines, personal items, smoking policy, room service/diet, and visiting hours. Information on how to activate the Rapid Response Team has been discussed. Patient/Family are encouraged to report perceived risks to care and to ask questions if they do not understand what they are told or what they should do.
[2024-06-27 23:25] VITALS: BP 142/78; PULSE 87; RESP 17; TEMP 36.9; O2SAT 99
[2024-06-28 05:20] VITALS: BP 115/58; PULSE 76; RESP 13; TEMP 36.9; O2SAT 100
[2024-06-28] MEDS: VANCOMYCIN 1,500 MG/NS 500 ML 1,500 MG/500 ML BAG 250 MG IVPB ×2 (05:59→17:07)
[2024-06-28 07:33] LABS: Basophils Absolute Auto 0.1 K/mm3 (0.0-0.1); Basophils Percent Auto 0.8 % (0.2-1.2); Eosinophils Absolute Auto 0.3 K/mm3 (0-0.3); Eosinophils Percent Auto 5.2 % (0-4.4); Hemoglobin 13.8 g/dL (14.0-18.0); Immature Granulocyte Absolute 0.01 K/mm3 (0.00-0.031); Immature Granulocyte Percent A 0.2 % (0-0.5); Lymphocytes Absolute Auto 1.96 K/mm3 (0.9-3.2); Lymphocytes Percent Auto 30.6 % (18.3-44.2); Mean Corpuscular HGB Conc 33.7 g/dl (32-36); Mean Corpuscular Hemoglobin 31.6 pg (26-34); Mean Corpuscular Volume 93.8 fl (80-100); Mean Platelet Volume 10.3 fl (7.4-10.4); Monocytes Absolute Auto 0.5 K/mm3 (0.1-0.6); Monocytes Percent Auto 7.8 % (2.6-8.5); Neutrophils Absolute Auto 3.6 K/mm3 (1.3-6.7); Neutrophils Percent Auto 55.4 % (45.5-73.1); Platelet Count Result 215 k/mm3 (150-375); Red Blood Count 4.37 M/mm3 (4.6-6.20); Red Cell Distribution Width 12.1 % (11.5-14.5); White Blood Count 6.4 K/mm3 (4.5-10.0)
[2024-06-28 07:40] VITALS: RESP 16; O2SAT 100
[2024-06-28 07:45] LABS: Anion Gap 5 mmol/L (4-12); Blood Urea Nitrogen 8 mg/dL (9-20); Carbon Dioxide 28 mmol/L (22-30); Chloride 104 mmol/L (98-107); Estimated CRCL calculation 132 ml/min; Estimated Glomerular Filt Rate > 60; Glucose 89 mg/dL (65-110); Potassium 3.9 mmol/L (3.4-5.0); Sodium 137 mmol/L (137-145)
--- NOTE | 2024-06-28 09:18 | P.PNIM_ITS ---
Progress Note: A&P Assessment and Plan (1) Cellulitis of face: Code(s): L03.211 - Cellulitis of face Status: Acute Assessment and Plan: * CT of the orbits showed left cheek soft tissue swelling with 7 mm subcutaneous abscess * Continue Vancomycin * Wound and blood cultures obtained and pending * Continue pain control Time Spent With Patient Time with patient: 25 - 35 minutes Subjective Date/time seen: 06/28/24 09:18 Interval history: Interval history: This is a 29-year-old male who presented to the hospital on 06/27/2024 with cellulitis to his face. Workup in the hospital included Orbit CT shows left cheek soft tissue swelling was 7 mm subcutaneous abscess. Initial labs showed a normal white blood cell count of 7.6, C reactive protein 3.1. Wound culture and blood cultures obtained and pending. Patient was started on vancomycin. Subjective: Patient denies any fever, chills, nausea, vomiting, diarrhea, abdominal pain, chest pain, shortness of breath. Labs today showed normal white blood cell count of 6.4, hemoglobin 13.8, eosinophil 5.2. Imaging reviewed. Review of Systems Review of Systems: All systems reviewed & are unremarkable except as noted in HPI and below Exam Narrative: General: In no acute distress, well nourished Head: atraumatic, no encephalopathy Eyes: Left pupil PERRLA, sclera clear, right eye legally blind ENT: moist mucous membranes, nasal passages clear, left, cauliflower ear Neck: supple, no JVD, no adenopathy, trachea midline Cardiac: Normal S1 and S2. RRR, No murmur, gallops or friction rubs, peripheral pulses intact. Respiratory: Lungs clear to auscultation, no adventitious lung sounds, currently on room air Gastrointestinal: soft, non-distended, non-tender, normoactive bowel sounds. : voiding without difficulty. Extremities: moves all extremities well, no edema, good ROM, strength 5/5 Skin: Left cheek and eye swelling with redness noted, scabbed area to left cheek Neuro: Alert and oriented x4, cranial nerves intact, no neuro deficits. Psych: normal mood, normal affect, interactive Skin: General skin exam: normal color, no rashes or lesions noted and wounds noted Wounds: wounds noted Objective Data Vital Signs Vital Signs: Vital Signs - 24 hr 06/27/24 10:59 06/27/24 17:27 06/27/24 17:30 Temperature 97.8 F Pulse Rate 86 67 67 Respiratory Rate 16 16 16 Blood Pressure 110/68 128/85 128/85 Pulse Oximetry 100 100 100 Oxygen Delivery 06/27/24 22:03 06/27/24 22:10 06/27/24 23:25 Temperature 98.5 F 98.5 F Pulse Rate 87 87 Respiratory Rate 17 17 Blood Pressure 142/78 H 142/78 H Pulse Oximetry 99 99 Oxygen Delivery Room Air 06/28/24 05:20 Temperature 98.4 F Pulse Rate 76 Respiratory Rate 13 Blood Pressure 115/58 L Pulse Oximetry 100 Oxygen Delivery Intake/Output Intake/Output: Intake & Output 06/25/24 06/26/24 06/27/24 06/28/24 23:59 23:59 23:59 23:59 Intake Total 250 400 Balance 250 400 Meds/Results Medications: Active Medications Generic Name Dose Route Start Last Admin Trade Name Freq PRN Reason Stop Dose Admin Acetaminophen 650 mg 06/27/24 16:37 Acetaminophen 325 Mg Tablet PO Q4H PRN Mild Pain (1-3) or Fever Hydrocodone Bitart/Acetaminophen 1 tab 06/27/24 16:37 Hydrocodone/Acetaminophen (*Crx) 5-325 Mg Tablet PO Q4H PRN Moderate Pain (4-6) Al Hydrox/Mg Hydrox/Simethicone 30 ml 06/27/24 16:37 Mag Hydrox/Al Hydrox/Simeth 30 Ml Udc PO QID PRN Dyspepsia Bisacodyl 5 mg 06/27/24 16:37 Bisacodyl 5 Mg Tablet Ec PO DAILY PRN Constipation Vancomycin HCl 1,500 mg in 500 mls @ 250 mls/hr 06/28/24 06:00 06/28/24 05:59 Vancomycin 1,500 Mg/Ns 500 Ml IVPB 250 mls/hr Q12H KAVIN Administration Morphine Sulfate 2 mg 06/27/24 16:37 Morphine Sulfate (*Crx) 2 Mg/Ml Inj IV PUSH Q4H PRN Pain Rated 7-10 Radiology Results: ITS Impressions Orbit CT 06/27/24 16:12 IMPRESSION: 1. Left cheek soft tissue swelling with 7 mm subcutaneous abscess. Labs Labs: Laboratory Results - last 24 hr 06/27/24 06/28/24 15:10 06:37 WBC 7.6 6.4 RBC 4.41 L 4.37 L Hgb 14.1 13.8 L Hct 41.6 L 41.0 L MCV 94.3 93.8 MCH 32.0 31.6 MCHC 33.9 33.7 RDW 12.3 12.1 Plt Count 220 215 MPV 9.9 10.3 Immature Gran % (Auto) 0.3 0.2 Neut % (Auto) 59.0 55.4 Lymph % (Auto) 28.0 30.6 Garvin % (Auto) 7.9 7.8 Eos % (Auto) 4.4 5.2 H Baso % (Auto) 0.4 0.8 Lymph # (Auto) 2.12 1.96 Garvin # (Auto) 0.6 0.5 Eos # (Auto) 0.3 0.3 Baso # (Auto) 0.0 0.1 Abs Immat Gran (auto) 0.02 0.01 Absolute Neuts (auto) 4.5 3.6 Absolute Nucleated RBC 0.000 0.000 Nucleated RBC % 0.0 0.0 PT 13.1 INR 1.0 APTT 25.3 Sodium 140 137 Potassium 4.0 3.9 Chloride 103 104 Carbon Dioxide 27 28 Anion Gap 10 5 BUN 13 8 L D Creatinine 0.87 0.78 Estim Creat Clear Calc 119 132 Estimated GFR > 60 > 60 Glucose 134 H 89 Lactic Acid 1.2 Calcium 9.1 9.0 Total Bilirubin 0.6 AST 52 ALT 33 Alkaline Phosphatase 55 C-Reactive Protein 3.1 H Total Protein 7.0 Albumin 4.2 Quality VTE Prophylaxis VTE prophylaxis: mechanical ordered
[2024-06-28 12:43] LABS: MRSA (PCR) NOT DETECTED (NOT DETECTE)
[2024-06-28 14:00] VITALS: BP 127/74; PULSE 69; RESP 20; TEMP 37.1; O2SAT 98
[2024-06-28 22:00] VITALS: BP 129/58; PULSE 71; RESP 18; TEMP 36.9; O2SAT 100
[2024-06-28 22:23] VITALS: BP 135/64; PULSE 54; RESP 20; TEMP 36.6; O2SAT 100
[2024-06-29 06:00] VITALS: BP 129/69; PULSE 71; RESP 18; TEMP 36.2; O2SAT 100
[2024-06-29] MEDS: LINEZOLID 600 MG TABLET PO (06:05)
[2024-06-29 11:36] LABS: Basophils Percent Auto 0.6 % (0.2-1.2); Eosinophils Absolute Auto 0.2 K/mm3 (0-0.3); Eosinophils Percent Auto 2.9 % (0-4.4); Hematocrit 45.3 % (42.0-52.0); Hemoglobin 15.6 g/dL (14.0-18.0); Immature Granulocyte Absolute 0.01 K/mm3 (0.00-0.031); Immature Granulocyte Percent A 0.2 % (0-0.5); Lymphocytes Percent Auto 26.9 % (18.3-44.2); Mean Corpuscular HGB Conc 34.4 g/dl (32-36); Mean Corpuscular Hemoglobin 31.7 pg (26-34); Mean Corpuscular Volume 92.1 fl (80-100); Mean Platelet Volume 10.1 fl (7.4-10.4); Monocytes Absolute Auto 0.3 K/mm3 (0.1-0.6); Monocytes Percent Auto 6.2 % (2.6-8.5); Neutrophils Absolute Auto 3.3 K/mm3 (1.3-6.7); Neutrophils Percent Auto 63.2 % (45.5-73.1); Platelet Count Result 247 k/mm3 (150-375); Red Blood Count 4.92 M/mm3 (4.6-6.20); Red Cell Distribution Width 11.9 % (11.5-14.5); White Blood Count 5.2 K/mm3 (4.5-10.0)
[2024-06-29 11:49] LABS: Alanine Aminotransferase 34 U/L (6-50); Albumin Level 4.4 g/dL (3.5-5.1); Alkaline Phosphatase 62 U/L (38-126); Anion Gap 14 mmol/L (4-12); Aspartate Amino Transferase 34 U/L (17-59); Bilirubin,Total 0.8 mg/dL (0.2-1.3); Blood Urea Nitrogen 9 mg/dL (9-20); Calcium 9.6 mg/dL (8.4-10.2); Carbon Dioxide 24 mmol/L (22-30); Chloride 102 mmol/L (98-107); Estimated CRCL calculation 117 ml/min; Estimated Glomerular Filt Rate > 60; Glucose 99 mg/dL (65-110); Potassium 4.2 mmol/L (3.4-5.0); Sodium 140 mmol/L (137-145)
--- NOTE | 2024-06-29 13:23 | P.DS_ITS ---
DS: Admitting Diagnosis Discharge Date 06/29/24 Admitting Diagnosis cellulitis to the face DS: Discharge Diagnosis Discharge Diagnosis (1) Cellulitis of face: Code(s): L03.211 - Cellulitis of face Status: Acute DS: Summary Hospital Course Reason for hospitalization: cellulitis to the face Hospital Course: final diagnosis: cellulitis Status at Discharge Cognitive/behavioral status at discharge: alert oriented x4 Functional status at discharge: independent ambulation Overall status at discharge: patient is progressing back to baseline Time Spent with Patient Time attestation: Total time spent providing and/or coordinating discharge services: Time spent: Greater than 30 minutes Exam Narrative: General: In no acute distress, well nourished Cardiac: Normal S1 and S2. RRR, No murmur, gallops or friction rubs, peripheral pulses intact. Respiratory: Lungs clear to auscultation, no adventitious lung sounds, currently on room air Gastrointestinal: soft, non-distended, non-tender, normoactive bowel sounds. : voiding without difficulty. Extremities: moves all extremities well, no edema, good ROM, strength 5/5 Skin: Left cheek and eye swelling with redness noted, scabbed area to left cheek Neuro: Alert and oriented x4 DS: Data Data Completed and Pending Labs on day of discharge: Labs from last 24 hours 06/29/24 11:09 WBC 5.2 RBC 4.92 Hgb 15.6 Hct 45.3 MCV 92.1 MCH 31.7 MCHC 34.4 RDW 11.9 Plt Count 247 MPV 10.1 Immature Gran % (Auto) 0.2 Neut % (Auto) 63.2 Lymph % (Auto) 26.9 [place] % (Auto) 6.2 Eos % (Auto) 2.9 Baso % (Auto) 0.6 Lymph # (Auto) 1.40 [place] # (Auto) 0.3 Eos # (Auto) 0.2 Baso # (Auto) 0.0 Abs Immat Gran (auto) 0.01 Absolute Neuts (auto) 3.3 Absolute Nucleated RBC 0.000 Nucleated RBC % 0.0 Sodium 140 Potassium 4.2 Chloride 102 Carbon Dioxide 24 Anion Gap 14 H BUN 9 Creatinine 0.89 Estim Creat Clear Calc 117 Estimated GFR > 60 Glucose 99 Calcium 9.6 Total Bilirubin 0.8 AST 34 ALT 34 Alkaline Phosphatase 62 Total Protein 8.0 Albumin 4.4 Preliminary micro results at discharge 06/27/24 17:24 Anaerobic Culture - Preliminary Face Aerobic Culture - Preliminary Citrobacter Koseri 06/27/24 17:18 Blood Culture - Preliminary Blood 06/27/24 15:28 Blood Culture - Preliminary Blood Discharge Plan Discharge Attending physician on discharge: Han Mark Discharging Clinician: Lorena Cervantes Anticipated Discharge Date/Time: 06/29/24 12:45 Patient Disposition: Home, Self-Care Activity: as tolerated Diet: as tolerated Discharge Instructions: Follow up with infectious disease doctor for your skin infections and history of MRSA Dr. Muro (infectious disease) is located at [address] [place] [address] Follow up with your primary care doctor in 1 week after completing full course of antibiotics Finish all of your antibiotics even if you are feeling better Patient Instructions: Antibiotic Form Patient Language: Faroese Stand Alone Forms: General Discharge Information Follow-up/Referrals: UNKNOWN,DOCTOR [Primary Care Provider] - 1 Week Discharge Medications: New sulfamethoxazole-trimethoprim [Bactrim DS] 800-160 mg tablet 1 tablet PO Q12H Qty: 16 0RF No Action No Home Medications Date of admission: 06/27/24 17:10 Primary Care Provider: UNKNOWN,DOCTOR Admitting Provider: Viry Rodríguez Attending physician on admission: Lorena Cervantes Condition: Stable Quality VTE Prophylaxis VTE prophylaxis: mechanical ordered
== END 2024-06-29 13:50 | disposition home or self-care (01) | DRG 603 ==
LOC: ANHED 16:41 → ANH3MEDSUR 17:15
PROVIDERS: Registered Nurse; Student in an Organized Health Care Education/Training Program; Admitting Provider Hospitalist; Emergency Provider Emergency Medicine; Visit Provider Nurse Practitioner Acute Care
DX: L03.211 Cellulitis of face (principal); B96.89 Other specified bacterial agents as the cause of diseases classified elsewhere; Z86.14 Personal history of Methicillin resistant Staphylococcus aureus infection
CPT/HCPCS: 36415; 70481; 80048; 80053; 83605; 85025; 85610; 85730; 86140; 87040; 87070; 87075; 87186; 87205; 87641; 93005; 96365; 96366; 96375; 99285; A9270; J3370; Q9967